=== PATIENT | female | born 1995 | race African-American/Black ===

== ENCOUNTER 2017-09-30 23:08 | Emergency (ER) | payer SELFPAY ==
[~2017-09-30] VITALS: Ht 170.2 cm; Wt 76.6 kg
[2017-09-30 23:58] VITALS: BP 133/69; PULSE 80; RESP 16; TEMP 98.8; O2SAT 100
--- NOTE | 2017-10-01 00:49 | RADRPT ---
EXAM DATE/TIME: 10/01/2017 00:20 [place] COMPARISON: No previous studies available for comparison. INDICATIONS : Cough, flu-like symptoms for 1 week MEDICAL HISTORY : None. SURGICAL HISTORY : None. ENCOUNTER: Initial ACUITY: 1 week PAIN SCORE: 5/10 LOCATION: Bilateral chest FINDINGS: PA and lateral views of the chest demonstrate the lungs to be symmetrically aerated without evidence of mass, infiltrate or effusion. The cardiomediastinal contours are unremarkable. Osseous structure s are intact. CONCLUSION: No acute disease. Gasper Morrison MD on October 01, 2017 at 0:46 Board Certified Radiologist. This report was verified electronically.
[2017-10-01 00:55] LABS: AUTOMATED NEUTROPHIL # 7.5 TH/MM3 (1.8-7.7); BASOPHIL % 0.4 % (0.0-2.0); EOSINOPHIL # 0.1 TH/MM3 (0-0.4); EOSINOPHIL % 1.4 % (0.0-4.0); HEMATOCRIT 36.8 % (35.0-46.0); HEMOGLOBIN 11.9 GM/DL (11.6-15.3); LYMPH % 19.2 % (9.0-44.0); LYMPHOCYTE # 1.9 TH/MM3 (1.0-4.8); MEAN CELL VOLUME 81.8 FL (80.0-100.0); MEAN CORPUSCULAR HEMOGLOBIN 26.4 PG (27.0-34.0); MEAN CORPUSCULAR HGB CONC 32.3 % (32.0-36.0); MEAN PLATELET VOLUME 7.9 FL (7.0-11.0); MONO % 4.5 % (0.0-8.0); MONOCYTE # 0.5 TH/MM3 (0-0.9); NEUT % 74.5 % (16.0-70.0); PLATELET COUNT 365 TH/MM3 (150-450); RED BLOOD COUNT 4.51 MIL/MM3 (4.00-5.30); RED CELL DISTRIBUTION WIDTH 14.6 % (11.6-17.2); WHITE BLOOD COUNT 10.1 TH/MM3 (4.0-11.0)
[2017-10-01 01:16] LABS: BICARBONATE 27.3 MEQ/L (21.0-32.0); BLOOD UREA NITROGEN 11 MG/DL (7-18); CHLORIDE 107 MEQ/L (98-107); CREATININE 0.78 MG/DL (0.50-1.00); GLOMERULAR FILTRATION RATE 92 ML/MIN (>89); GLUCOSE,RANDOM 91 MG/DL (74-106); SODIUM (NA) 141 MEQ/L (136-145)
[2017-10-01 01:20] LABS: TROPONIN I LESS THAN 0.02 NG/ML (0.02-0.05)
--- NOTE | 2017-10-01 02:04 | PD ---
HPI Chief Complaint: Chest Pain Time Seen by Provider: 00:36 Travel History International Travel<30 days: No Contact w/Intl Traveler<30days: No Traveled to known affect area: No History of Present Illness HPI Patient is a college student she is complaining of sore throat congestion cough she had fever and cramps and body aches reports " flu-like ' feeling. Pt appears non toxic non septic . Pt is busy on her iPad when I enter room. No signs or symptoms of sepsis nontoxic and no cardio complaint PFSH Past Medical History Respiratory: Yes (asthma) LMP: 10/01/17 Social History Tobacco Use: No Allergies-Medications (Allergen,Severity, Reaction): Coded Allergies: No Known Drug Allergies (Verified Allergy, Unknown, 10/01/17) Physical Exam Narrative GENERAL: healthy appearing female on iPAD SKIN: Warm and dry. HEAD: Atraumatic. Normocephalic. EYES: Pupils equal and round. No scleral icterus. No injection or drainage. ENT: No nasal bleeding or discharge. Mucous membranes pink and moist. NECK: Trachea midline. No JVD. CARDIOVASCULAR: Regular rate and rhythm. RESPIRATORY: No accessory muscle use. Clear to auscultation. Breath sounds equal bilaterally. GASTROINTESTINAL: Abdomen soft, non-tender, nondistended. Hepatic and splenic margins not palpable. MUSCULOSKELETAL: Extremities without clubbing, cyanosis, or edema. No obvious deformities. NEUROLOGICAL: Awake and alert. No obvious cranial nerve deficits. Motor grossly within normal limits. Five out of 5 muscle strength in the arms and legs. Normal speech. PSYCHIATRIC: Appropriate mood and affect; insight and judgment normal. Data Data Last Documented VS Orders Orders Electrocardiogram (10/01/17 00:01) Complete Blood Count With Diff (10/01/17 00:01) Basic Metabolic Panel (Bmp) (10/01/17 00:01) Ckmb (Isoenzyme) Profile (10/01/17 00:01) Troponin I (10/01/17 00:01) Iv Access Insert/Monitor (10/01/17 00:) Ecg Monitoring (10/01/17 00:01) Oxygen Administration (10/01/17 00:01) Oximetry (10/01/17 00:01) Chest, Pa & Lat (10/01/17 00:01) CKMB (10/01/17 00:15) CKMB% (4/5/18 00:15) Influenzae A/B Antigen (10/01/17 02:11) Urinalysis - C+S If Indicated (10/01/17 02:11) Group A Rapid Strep Screen (10/01/17 02:11) Ed Urine Pregnancytest Poc (10/01/17 02:19) Strep Culture (Group A) (10/01/17 02:15) Ondansetron Odt (Zofran Odt) (10/01/17 03:15) Famotidine (Pepcid) (10/01/17 03:15) Ed Discharge Order (10/01/17 03:36) Labs Laboratory Tests Test 10/01/17 00:15 10/01/17 02:15 White Blood Count 10.1 TH/MM3 Red Blood Count 4.51 MIL/MM3 Hemoglobin 11.9 GM/DL Hematocrit 36.8 % Mean Corpuscular Volume 81.8 FL Mean Corpuscular Hemoglobin 26.4 PG Mean Corpuscular Hemoglobin Concent 32.3 % Red Cell Distribution Width 14.6 % Platelet Count 365 TH/MM3 Mean Platelet Volume 7.9 FL Neutrophils (%) (Auto) 74.5 % Lymphocytes (%) (Auto) 19.2 % Monocytes (%) (Auto) 4.5 % Eosinophils (%) (Auto) 1.4 % Basophils (%) (Auto) 0.4 % Neutrophils # (Auto) 7.5 TH/MM3 Lymphocytes # (Auto) 1.9 TH/MM3 Monocytes # (Auto) 0.5 TH/MM3 Eosinophils # (Auto) 0.1 TH/MM3 Basophils # (Auto) 0.0 TH/MM3 CBC Comment DIFF FINAL Differential Comment Blood Urea Nitrogen 11 MG/DL Creatinine 0.78 MG/DL Random Glucose 91 MG/DL Calcium Level 9.0 MG/DL Sodium Level 141 MEQ/L Potassium Level 3.7 MEQ/L Chloride Level 107 MEQ/L Carbon Dioxide Level 27.3 MEQ/L Anion Gap 7 MEQ/L Estimat Glomerular Filtration Rate 92 ML/MIN Total Creatine Kinase 197 U/L Creatine Kinase MB 1.0 NG/ML Creatine Kinase MB % 0.5 % Troponin I LESS THAN 0.02 NG/ML Urine Color YELLOW Urine Turbidity HAZY Urine pH 6.0 Urine Specific [place] 1.023 Urine Protein 30 mg/dL Urine Glucose (UA) NEG mg/dL Urine Ketones NEG mg/dL Urine Occult Blood LARGE Urine Nitrite NEG Urine Bilirubin NEG Urine Urobilinogen LESS THAN 2.0 MG/DL Urine Leukocyte Esterase NEG Urine RBC 41 /hpf Urine WBC 4 /hpf Urine Squamous Epithelial Cells 8 /hpf Urine Bacteria RARE /hpf Urine Mucus FEW /lpf Microscopic Urinalysis Comment CULT NOT INDICATED MDM Medical Decision Making Medical Screen Exam Complete: Yes Emergency Medical Condition: Yes Differential Diagnosis viral illness vs menstrual pain vs bactrial urinary infection , other Narrative Course UA normal and flu negative and pt labs negative CHest xray normal viral illness Diagnosis Primary Impression: Viral illness Patient Instructions: General Instructions, Viral Syndrome (ED) Carlos Powers MD Oct 01, 2017 02:04
[2017-10-01 02:41] LABS: BACTERIA, URINE RARE /hpf; BILIRUBIN, URINE NEG (NEG); BLOOD, URINE LARGE (NEG); GLUCOSE,URINE NEG (NEG); KETONE, URINE NEG (NEG); MUCUS URINE FEW /lpf (OCC); NITRITE,URINE NEG (NEG); SQUAMOUS EPITHELIAL CELL URINE 8 /hpf (0-5); URINE COLOR YELLOW (YELLW/STRAW); URINE LEUKOCYTE ESTERASE NEG (NEG)
[2017-10-01] MEDS ORDERED: FAMOTIDINE 20 MG TAB PO ONE (03:15)
[2017-10-01] MEDS ORDERED: ONDANSETRON ODT 4 MG TAB PO ONE (03:15)
[2017-10-01 03:22] VITALS: BP 116/63; PULSE 71
--- NOTE | 2017-10-01 13:39 | EKG ---
Date Performed: 10/01/2017 Time Performed: 00:13:25 PTAGE: 22 years EKG: Sinus rhythm WITH SINUS ARRHYTHMIA POSSIBLE LEFT ATRIAL ENLARGEMENT BORDERLINE ECG NO PREVIOUS TRACING DOCTOR: Ana Olea Interpretating Date/Time 10/01/2017 13:38:43
== END 2017-10-01 03:22 | disposition home or self-care (01) ==
LOC: NEPC 23:08
DX: B34.9 Viral infection, unspecified (principal)
CPT/HCPCS: 71046; 80048; 81001; 82550; 82552; 84484; 84703; 85025; 87081; 87804; 87880; 93005; 99284